=== PATIENT | female | born 1965 | race Asian ===

== ENCOUNTER 2019-08-14 22:51 | Emergency (ER) | payer SELFPAY ==
[~2019-08-14] VITALS: Ht 170.2 cm; Wt 76.2 kg
--- NOTE | 2019-08-14 22:56 | NUR ---
PT BIBRA FROM HOME C/O SOB AND PAIN UPON INSPIRATION SINCE THIS EVENING. PT ALSO COMPLAINS OF MIDSTERNAL CHEST PAIN X 1 DAY. PT AAOX4, VSS, SATTING 98% ON RA. PT CONNECTED TO THE PRE [employer] AND POX
[2019-08-14] MEDS ORDERED: ACETAMINOPHEN ES 500 MG TABLET ONE (23:13)
[2019-08-14] MEDS ORDERED: IBUPROFEN 600 MG TABLET PO ONE (23:14)
[2019-08-14] MEDS: IBUPROFEN 400 MG TABLET PO ONE (23:25)
--- NOTE | 2019-08-14 23:25 | NUR ---
BLOOD COLLECTED AND SENT TO LAB
[2019-08-14] MEDS: ACETAMINOPHEN ES 500 MG TABLET PO ONE (23:26)
[2019-08-14] MEDS: IV NS 0.9% 500 ML IV ONE (23:26)
[2019-08-14 23:37] LABS: BASOPHILS # (AUTO) 0.1 /CMM (0.0-0.2); BASOPHILS % (AUTO) 0.4 % (0.0-2.0); EOSINOPHILS % (AUTO) 0.1 % (0.0-6.0); HEMATOCRIT 41 % (33-45); HEMOGLOBIN 13.6 g/dL (11.5-14.8); LYMPHOCYTES # (AUTO) 0.8 /CMM (0.8-4.8); LYMPHOCYTES % (AUTO) 4.6 % (20.0-44.0); MEAN CORPUSCULAR HGB CONC 33 g/dl (31.0-36.0); MEAN CORPUSCULAR VOLUME 89 fL (82-100); MONOCYTES % (AUTO) 5.6 % (2.0-12.0); NEUTROPHILS # (AUTO) 16.3 /CMM (1.8-8.9); NEUTROPHILS % (AUTO) 89.3 % (43.0-81.0); PLATELET COUNT (AUTO) 342 /CMM (150-450); RED BLOOD CELL COUNT(AUTO) 4.61 MIL/uL (4.0-5.2); WHITE BLOOD COUNT (AUTO) 18.3 K/uL (4.3-11.0)
[2019-08-14 23:46] LABS: CARBON DIOXIDE 25 mmol/L (21-32); CHLORIDE 94 mmol/L (98-107); POTASSIUM 4.4 mmol/L (3.5-5.1); SODIUM SERUM 129 mmol/L (136-145); UREA NITROGEN, BLOOD 10 mg/dL (7-18)
--- NOTE | 2019-08-14 23:49 | NUR ---
COVID SWAB SENT TO LAB
--- NOTE | 2019-08-14 23:49 | NUR ---
URINE COLLECTED AND SENT TO LAB
[2019-08-14 23:51] LABS: D-DIMER 0.64 mg/L(FEU (0.17-0.50)
[2019-08-14 23:52] LABS: GLUCOSE 413 mg/dL (74-106)
[2019-08-15] LABS: ALANINE AMINOTRANSFERASE 22 U/L (12-78); ALBUMIN 3.4 g/dL (3.4-5.0); ALKALINE PHOSPHATASE 106 U/L (46-116); ASPARTATE AMINOTRANSFERASE 14 U/L (15-37); B-TYPE NATRIURETIC PEPTIDE 36 PG/ML (0-125); BILIRUBIN,TOTAL 0.7 mg/dL (0.2-1.0); TOTAL PROTEIN, SERUM 8.8 g/dL (6.4-8.2)
[2019-08-15 00:02] LABS: CREATINE KINASE, TOTAL 51 U/L (26-192); FERRITIN 566 ng/mL (8-388)
[2019-08-15 00:18] LABS: APPEARANCE,URINE Clear (CLEAR); BILIRUBIN,URINE Negative (NEGATIVE); BLOOD, URINE Trace-intact Ery/uL (NEGATIVE); COLOR,URINE Yellow (YELLOW); KETONES,URINE 40 (NEGATIVE); LEUKOCYTE ESTERASE ,URINE Negative (NEGATIVE); NITRITE, URINE Negative (NEGATIVE); PH,URINE 5.5 (5.0-8.0); PROTEIN,URINE 30 mg/dl (NEGATIVE); UGLUCOSE >=1000 mg/dL (NEGATIVE); UROBILINOGEN,URINE 0.2 EU/dL (0.2)
[2019-08-15 00:24] LABS: BACTERIA,URINE Many /HPF (None Seen); SQUAMOUS EPITHELIAL CELL,UR Few /HPF (None Seen)
[2019-08-15] MEDS: CEFTRIAXONE 1GM BAG (ER ONLY) 1 GM/50 ML PIGGYBACK IV ONE (01:11)
[2019-08-15 01:15] LABS: C-REACTIVE PROTEIN 32.4 mg/dL (0.0-0.9)
[2019-08-15] MEDS ORDERED: CEFTRIAXONE 1GM BAG (ER ONLY) 50 ML IV ONE (01:36)
[2019-08-15] MEDS: AZITHROMYCIN 500 MG in IV D5W 250 ML IV ONE (01:42)
[2019-08-15] MEDS ORDERED: AZITHROMYCIN 500 MG VIAL ONE (01:44)
--- NOTE | 2019-08-15 03:20 | NUR ---
IV removed. Catheter intact and site benign. Pressure and 4x4 applied to site. No bleeding noted.
--- NOTE | 2019-08-15 03:20 | NUR ---
Patient discharged to home in stable condition. Written and verbal after care instructions given. Patient verbalizes understanding of instruction.
[2019-08-15 03:21] VITALS: BP 115/79
== END 2019-08-15 03:27 | disposition home or self-care (01) ==
LOC: ER 22:51
DX: J18.9 Pneumonia, unspecified organism (principal); J91.8 Pleural effusion in other conditions classified elsewhere
CPT/HCPCS: 36415; 71045; 80053; 81001; 82550; 82728; 83605; 83615; 83880; 84145; 84484; 85025; 85378; 85385; 85730; 86140; 87040; 87077; 87086; 87186; 93005; 96361; 96365; 96367; 99285; C9803; J0456; J0696; U0003; 81000-TC; J7060